=== PATIENT | female | born 1970 | race American Indian/Alaskan Native ===

== ENCOUNTER 2017-02-09 21:26 | Emergency (ER) | payer MEDICAID ==
--- NOTE | 2017-02-10 04:37 | Emergency Department Report ---
- General Chief complaint: Allergic Reaction Stated complaint: INSECT BITE Time Seen by Provider: 02/10/17 04:08 Source: patient Mode of arrival: Ambulatory Limitations: No Limitations - History of Present Illness Initial comments: This is a 46-year-old female well-nourished with nontoxic or ill in appearance that presents with redness and swelling to the left forearm. Patient stated she thinks she got bitten by a unknown insect she was taking the trash out. Patient denies any obvious signs of a laceration or abrasion to the site. Denies trauma to the area. Patient also stated has been itching until 2 Benadryl's that has subsided currently. Associated symptoms includes burning sensation to the area. Patient denies any chest pain, short of breath, numbness , tingling, abdominal pain, joint swelling, joint pain, pus, drainage, itching, nausea or vomiting. Patient denies any drug allergies. MD complaint: other (cellulitis) -: Gradual, days(s) (1) Location: LUE (anterior forearm) Severity: mild Severity scale (0 -10): 4 Quality: burning Consistency: constant Associated symptoms: denies other symptoms Treatments Prior to Arrival: none - Related Data Previous Rx's Medication Instructions Recorded Last Taken Type Cephalexin [Keflex] 500 mg PO BID #14 cap 02/10/17 Unknown Rx predniSONE [Deltasone] 20 mg PO BID #10 tab 02/10/17 Unknown Rx Allergies Allergy/AdvReac Type Severity Reaction Status Date / Time codeine Allergy Vomiting Verified 02/10/17 04:56 Abscess Boil HPI - HPI Chief Complaint: Allergic Reaction Stated Complaint: INSECT BITE Time Seen by Provider: 02/10/17 04:08 Home Medications: Previous Rx's Medication Instructions Recorded Last Taken Type Cephalexin [Keflex] 500 mg PO BID #14 cap 02/10/17 Unknown Rx predniSONE [Deltasone] 20 mg PO BID #10 tab 02/10/17 Unknown Rx Allergies/Adverse Reactions: Allergies Allergy/AdvReac Type Severity Reaction Status Date / Time codeine Allergy Vomiting Verified 02/10/17 04:56 ED Review of Systems ROS: Stated complaint: INSECT BITE Other details as noted in HPI Constitutional: denies: chills, fever Eyes: denies: eye pain, eye discharge, vision change ENT: denies: ear pain, throat pain Respiratory: denies: cough, shortness of breath, wheezing Cardiovascular: denies: chest pain, palpitations Endocrine: no symptoms reported Gastrointestinal: denies: abdominal pain, nausea, diarrhea Genitourinary: denies: urgency, dysuria, discharge Musculoskeletal: denies: back pain, joint swelling, arthralgia Skin: denies: rash, lesions Neurological: denies: headache, weakness, paresthesias Psychiatric: denies: anxiety, depression Hematological/Lymphatic: denies: easy bleeding, easy bruising ED Past Medical Hx - Past Medical History Previous Medical History?: Yes Hx Hypertension: Yes Hx Diabetes: Yes - Surgical History Past Surgical History?: Yes Additional Surgical History: wisdom teeth removal - Social History Smoking Status: Never Smoker - Medications Home Medications: Home Medications Medication Instructions Recorded Confirmed Last Taken Type Cephalexin [Keflex] 500 mg PO BID #14 cap 02/10/17 Unknown Rx predniSONE [Deltasone] 20 mg PO BID #10 tab 02/10/17 Unknown Rx ED Physical Exam - General Limitations: No Limitations General appearance: alert, in no apparent distress - Head Head exam: Present: atraumatic, normocephalic - Eye Eye exam: Present: normal appearance, PERRL, EOMI. Absent: scleral icterus, conjunctival injection, nystagmus, periorbital swelling, periorbital tenderness Pupils: Present: normal accommodation - ENT ENT exam: Present: normal exam, normal orophraynx, mucous membranes moist, TM's normal bilaterally, normal external ear exam - Neck Neck exam: Present: normal inspection, full ROM. Absent: tenderness, meningismus, lymphadenopathy, thyromegaly - Respiratory Respiratory exam: Present: normal lung sounds bilaterally. Absent: respiratory distress, wheezes, rales, rhonchi, stridor, chest wall tenderness, accessory muscle use, decreased breath sounds, prolonged expiratory - Cardiovascular Cardiovascular Exam: Present: regular rate, normal rhythm. Absent: systolic murmur, diastolic murmur, rubs, gallop - GI/Abdominal GI/Abdominal exam: Present: soft, normal bowel sounds. Absent: distended, tenderness, guarding, rebound, rigid, organomegaly - Extremities Exam Extremities exam: Present: normal inspection, full ROM, normal capillary refill. Absent: tenderness, pedal edema, joint swelling, calf tenderness - Expanded Upper Extremity Exam Left General: Present: normal inspection Shoulder Exam: Present: normal inspection, full ROM. Absent: tenderness, swelling, abrasion, laceration, ecchymosis Upper Arm exam: Present: normal inspection, full ROM. Absent: tenderness, swelling, abrasion, laceration, ecchymosis Elbow exam: Present: normal inspection, full ROM. Absent: tenderness, swelling , abrasion, laceration, ecchymosis, deformity Forearm Wrist exam: Present: normal inspection, full ROM, tenderness, swelling, erythema. Absent: abrasion, laceration, ecchymosis, deformity, crepidus, dislocation, tenderness over anatomical snuff box, pain with axial thumb loading , other (pus, drainage) Hand Wrist exam: Present: normal inspection, full ROM. Absent: tenderness, swelling, abrasion, laceration, ecchymosis, deformity, crepidus, dislocation, erythema, amputation, nail avulsion, subungual hematoma Neuro motor exam: Present: wrist extension intact, thumb adduction intact, fingers 2-5 abduction intact Neurosensory exam: Present: 2-point discrimination, radial nerve intact, ulnar nerve intact, median nerve intact Vascular: Present: vascular compromise, normal capillary refill - Back Exam Back exam: Present: normal inspection, full ROM. Absent: tenderness, CVA tenderness (R), CVA tenderness (L), muscle spasm, paraspinal tenderness, vertebral tenderness, rash noted - Neurological Exam Neurological exam: Present: alert, oriented X3, CN II-XII intact, normal gait - Psychiatric Psychiatric exam: Present: normal affect, normal mood - Skin Skin exam: Present: warm, dry, intact, normal color. Absent: rash - Other Other exam information: 4 cm erythema with tenderness and swelling to the anterior forearm. No pus, no drainage. ED Course Vital Signs 02/09/17 02/10/17 02/10/17 22:27 04:44 04:53 Temperature 97.6 F Pulse Rate 97 H 80 78 Respiratory 20 16 Rate Blood Pressure 106/60 Blood Pressure 108/84 [Right] O2 Sat by Pulse 98 100 Oximetry ED Medical Decision Making - Medical Decision Making ED course: This is a 46-year-old female that presents with cellulitis to the anterior forearm. 1- after my physical exam, patient received Keflex and prednisone at the time of discharge. 2- I used a permanent marker to outline the cellulitis and instructed the patient to observe if redness starts the past that lined up or bends emergency room. 3- patient was instructed to finish full course of antibiotics and prednisone as prescribed. 4- at time time of discharge, the patient does not seem toxic or ill in appearance. No acute signs of distress noted. Patient agrees to discharge treatment plan of care. No further questions noted by the patient. 5- patient was also instructed to follow-up with her primary care doctor in 3-5 days or if symptoms worsen such as redness passing the outline marker, pus, drainage, fever, chills, numbness or tingling, headache, stiff neck, abdominal pain report back to emergency room as was possible. Critical care attestation.: If time is entered above; I have spent that time in minutes in the direct care of this critically ill patient, excluding procedure time. ED Disposition Clinical Impression: Cellulitis Qualifiers: Site of cellulitis: extremity Site of cellulitis of extremity: upper extremity Laterality: left Qualified Code(s): L03.114 - Cellulitis of left upper limb Disposition: DISCHARGED TO HOME OR SELFCARE Is pt being admited?: No Does the pt Need Aspirin: No Condition: Stable Instructions: Cellulitis (ED) Additional Instructions: Follow-up with your primary care doctor in 3-5 days or if symptoms worsen such as redness passing the outline marker, pus, drainage, fever, chills, numbness or tingling, headache, stiff neck, abdominal pain report back to emergency room as was possible. Take full course of antibiotics and prednisone as prescribed. Prescriptions: Cephalexin [Keflex] 500 mg PO BID #14 cap predniSONE [Deltasone] 20 mg PO BID #10 tab Referrals: GURDEEP VALLECILLO MD [Primary Care Provider] - 3-5 Days [facility] [Outside] - 3-5 Days [facility] [Outside] - 3-5 Days NORMA PERKINS MD [Staff Physician] - 3-5 Days Forms: Work/School Release Form(ED)
[2017-02-10 04:54] VITALS: BP 108/84
== END 2017-02-10 05:40 | disposition home or self-care (01) ==
LOC: ED 21:26
DX: L03.114 Cellulitis of left upper limb (principal); I10 Essential (primary) hypertension; E11.9 Type 2 diabetes mellitus without complications
CPT/HCPCS: 99282

== ENCOUNTER 2019-04-26 10:55 | Emergency (ER) | payer MEDICAID ==
--- NOTE | 2019-04-26 11:47 | Event Note ---
ED Screening Note Date of service: 04/26/19 Time: 11:43 ED Screening Note: This is a 48 y.o. F. that presents to the ER with BLE edema this morning. Newly diagnosed with ESRD stage 3. PMH DM2, HTN, gout, and anxiety This initial assessment/diagnostic orders/clinical plan/treatment(s) is/are subject to change based on patients health status, clinical progression and re- assessment by fellow clinical providers in the ED. Further treatment and workup at subsequent clinical providers discretion. Patient/guardian urged not to elope from the ED as their condition may be serious if not clinically assessed and managed. Initial orders include: Labs, EKG, and CXR
[2019-04-26 12:25] LABS: Hematocrit 36.8 % (30.3-42.9); Mean Corpuscular HGB Conc 33 % (30-34); Mean Corpuscular Volume 80 fl (79-97); Red Blood Count 4.58 M/mm3 (3.65-5.03)
[2019-04-26 12:44] LABS: Red Cell Distribution Width 22.7 % (13.2-15.2)
[2019-04-26 12:45] LABS: Platelet Count 99 K/mm3 (140-440)
--- NOTE | 2019-04-26 13:15 | XRay Report ---
CHEST 2 VIEWS INDICATION / CLINICAL INFORMATION: Edema. COMPARISON: None available. FINDINGS: SUPPORT DEVICES: None. HEART / MEDIASTINUM: The heart size and pulmonary vasculature are normal. LUNGS / PLEURA: No significant pulmonary or pleural abnormality. No pneumothorax. ADDITIONAL FINDINGS: No significant additional findings. IMPRESSION: No acute findings. Signer Name: Liam Marie MD Signed: 04/26/2019 1:11 PM Workstation Name: [id number]
[2019-04-26 13:22] LABS: Albumin 2.8 g/dL (3.9-5)
[2019-04-26 14:22] LABS: Basophils % (Manual) 0 % (0.0-1.8); Total Cells Counted 100
[2019-04-26 14:23] LABS: Anisocytosis Few; Platelet Estimate Consistent w Auto; Poikilocytosis Few; Target Cells Few
--- NOTE | 2019-04-26 15:53 | Emergency Department Report ---
<NORMA ESPINOZA - Last Filed: 04/26/19 19:45> ED General Adult HPI - General Chief complaint: Extremity Problem,Nontraumatic Stated complaint: BI LEG SWELLING Time Seen by Provider: 04/26/19 11:43 Source: patient Mode of arrival: Ambulatory Limitations: No Limitations - History of Present Illness Initial comments: 48-year-old female arrives with a family member. She is somewhat poor historian. Initially she stated that both her legs were swollen and that she had a kidney age or creatinine of 3. She sees Dr. Ku. She had some mild renal failure with creatinines of 1.4 or so in early March. When I spoke with her monitor car operator at the custodial is seems they were actually concerned about right leg swelling. When I went back to discuss that with the patient, she could then remember that she did have some right leg discomfort and swelling. Anyway, the patient has had intermittent leg swelling and is treated with diure tics. -: Gradual, days(s) Associated Symptoms: denies other symptoms - Related Data Home Medications Medication Instructions Recorded Confirmed Last Taken Allopurinol [Zyloprim] 100 mg PO QDAY 04/26/19 04/26/19 04/26/19 Folic Acid 0.8 mg PO QDAY 04/26/19 04/26/19 04/26/19 Furosemide [Lasix TAB] 40 mg PO QDAY 04/26/19 04/26/19 04/26/19 Lisinopril/Hydrochlorothiazide 1 each PO QDAY 04/26/19 04/26/19 04/26/19 [Zestoretic 10-12.5 mg Tablet] Pyridoxine HCl [Vitamin B-6 100MG 100 mg PO DAILY 04/26/19 04/26/19 04/26/19 TAB] Thiamine [Vitamin B-1] 100 mg PO QDAY 04/26/19 04/26/19 04/26/19 diphenhydrAMINE [Benadryl CAP] 25 mg PO QHS PRN 04/26/19 04/26/19 Unknown metFORMIN [Glucophage] 500 mg PO QDAY 04/26/19 04/26/19 04/26/19 risperiDONE [RisperiDONE] 1 mg PO QDAY 04/26/19 04/26/19 04/26/19 Allergies Allergy/AdvReac Type Severity Reaction Status Date / Time codeine Allergy Vomiting Verified 02/10/17 04:56 ED Review of Systems Constitutional: denies: chills, fever Eyes: denies: eye pain, eye discharge, vision change ENT: denies: ear pain, throat pain Respiratory: denies: cough, shortness of breath, wheezing Cardiovascular: denies: chest pain, palpitations Endocrine: no symptoms reported Gastrointestinal: denies: abdominal pain, nausea, diarrhea Genitourinary: denies: urgency, dysuria, discharge Musculoskeletal: as per HPI (right leg swelling and pain), arthralgia (patient states that her right knee hurts). denies: back pain, joint swelling Skin: denies: rash, lesions Neurological: denies: headache, weakness, paresthesias Psychiatric: denies: anxiety, depression Hematological/Lymphatic: denies: easy bleeding, easy bruising ED Past Medical Hx - Past Medical History Previous Medical History?: Yes Hx Hypertension: Yes Hx Diabetes: Yes Hx Renal Disease: Yes (stage 3) - Surgical History Past Surgical History?: Yes Additional Surgical History: wisdom teeth removal - Social History Smoking Status: Never Smoker Substance Use Type: None - Medications Home Medications: Home Medications Medication Instructions Recorded Confirmed Last Taken Type Allopurinol [Zyloprim] 100 mg PO QDAY 04/26/19 04/26/19 04/26/19 History Folic Acid 0.8 mg PO QDAY 04/26/19 04/26/19 04/26/19 History Furosemide [Lasix TAB] 40 mg PO QDAY 04/26/19 04/26/19 04/26/19 History Lisinopril/Hydrochlorothiazide 1 each PO QDAY 04/26/19 04/26/19 04/26/19 History [Zestoretic 10-12.5 mg Tablet] Pyridoxine HCl [Vitamin B-6 100MG 100 mg PO DAILY 04/26/19 04/26/19 04/26/19 History TAB] Thiamine [Vitamin B-1] 100 mg PO QDAY 04/26/19 04/26/19 04/26/19 History diphenhydrAMINE [Benadryl CAP] 25 mg PO QHS PRN 04/26/19 04/26/19 Unknown History metFORMIN [Glucophage] 500 mg PO QDAY 08/14/19 08/14/19 08/14/19 History risperiDONE [RisperiDONE] 1 mg PO QDAY 04/26/19 04/26/19 04/26/19 History ED Physical Exam - General Limitations: No Limitations General appearance: alert, in no apparent distress - Head Head exam: Present: atraumatic, normocephalic - Eye Eye exam: Present: normal appearance. Absent: scleral icterus - ENT ENT exam: Present: mucous membranes moist - Neck Neck exam: Present: normal inspection - Respiratory Respiratory exam: Present: normal lung sounds bilaterally. Absent: respiratory distress - Cardiovascular Cardiovascular Exam: Present: regular rate, normal rhythm. Absent: systolic murmur, diastolic murmur, rubs, gallop - GI/Abdominal GI/Abdominal exam: Present: soft, normal bowel sounds. Absent: distended, tenderness, guarding, rebound, rigid - Extremities Exam Extremities exam: Present: other (patient's leg girth on the right appears to be a little bit increased compared to the left. She does appear to have some chronic right knee deformity. There is no effusion. There is no pain on range of motion or any Tenderness noted. There is some post inflammatory hypopigmentation of the dorsum of both feet. Neurovascular exam is intact.) - Back Exam Back exam: Present: normal inspection - Neurological Exam Neurological exam: Present: alert, oriented X3, CN II-XII intact. Absent: motor sensory deficit - Psychiatric Psychiatric exam: Present: normal affect, normal mood - Skin Skin exam: Present: warm, dry, intact, normal color. Absent: rash ED Course - Reevaluation(s) Reevaluation #1: On re-exam the patient has no complaints. Doppler exam is yet pending. 04/26/19 19:45 ED Medical Decision Making - Lab Data Result diagrams: 04/26/19 12:09 04/26/19 12:09 Laboratory Results - last 24 hr 04/26/19 04/26/19 04/26/19 12:09 12:09 12:09 WBC 8.9 RBC 4.58 Hgb 12.0 Hct 36.8 MCV 80 MCH 26 L MCHC 33 RDW 22.7 H Plt Count 99 L Hubbard % (Auto) Him Coder Add Manual Diff Complete Total Counted 100 Seg Neuts % (Manual) 54.0 Band Neutrophils % 0 Lymphocytes % (Manual) 36.0 H Reactive Lymphs % (Man) 0 Monocytes % (Manual) 9.0 H Eosinophils % (Manual) 1.0 Basophils % (Manual) 0 Metamyelocytes % 0 Myelocytes % 0 Promyelocytes % 0 Blast Cells % 0 Nucleated RBC % Not Reportable Seg Neutrophils # Man 4.8 Band Neutrophils # 0.0 Lymphocytes # (Manual) 3.2 Abs React Lymphs (Man) 0.0 Monocytes # (Manual) 0.8 Eosinophils # (Manual) 0.1 Basophils # (Manual) 0.0 Metamyelocytes # 0.0 Myelocytes # 0.0 Promyelocytes # 0.0 Blast Cells # 0.0 WBC Morphology Not Reportable Hypersegmented Neuts Not Reportable Hyposegmented Neuts Not Reportable Hypogranular Neuts Not Reportable Smudge Cells Not Reportable Toxic Granulation Not Reportable Toxic Vacuolation Not Reportable Dohle Bodies Not Reportable Pelger-Huet Anomaly Not Reportable Bernardino Rods Not Reportable Platelet Estimate Consistent w auto Clumped Platelets Not Reportable Plt Clumps, EDTA Not Reportable Large Platelets Not Reportable Giant Platelets Not Reportable Platelet Satelliting Not Reportable Plt Morphology Comment Not Reportable RBC Morphology Not Reportable Dimorphic RBCs Not Reportable Polychromasia Not Reportable Hypochromasia Not Reportable Poikilocytosis Few Anisocytosis Few Microcytosis Not Reportable Macrocytosis Not Reportable Spherocytes Not Reportable Pappenheimer Bodies Not Reportable Sickle Cells Not Reportable Target Cells Few Tear Drop Cells Not Reportable Ovalocytes Not Reportable Helmet Cells Not Reportable [place] Bodies Not Reportable [place] Rings Not Reportable Odin Cells Not Reportable Bite Cells Not Reportable Crenated Cell Not Reportable Elliptocytes Not Reportable Acanthocytes (Spur) Few Rouleaux Not Reportable Hemoglobin C Crystals Not Reportable Schistocytes Not Reportable Malaria parasites Not Reportable Brian Bodies Not Reportable Hem Pathologist Commnt No Sodium 133 L Potassium 4.4 Chloride 100.0 Carbon Dioxide 21 L Anion Gap 16 BUN 20 H Creatinine 1.2 Estimated GFR 59 BUN/Creatinine Ratio 17 Glucose 103 H Calcium 11.0 H Total Bilirubin 0.70 AST 60 H ALT 45 Alkaline Phosphatase 114 Troponin T < 0.010 NT-Pro-B Natriuret Pep 301.0 Total Protein 6.6 Albumin 2.8 L Albumin/Globulin Ratio 0.7 ED Disposition Clinical Impression: Leg edema, right Disposition: DC-01 TO HOME OR SELFCARE Condition: Stable Instructions: Leg Edema (ED) Additional Instructions: Follow-up with your doctor or the doctor/clinic provided. Return if symptoms worsen as indicated by your discharge instructions. Referrals: DOUG JACOBSON MD [Primary Care Provider] - 3-5 Days SANCHEZ JOSUE MD [Staff Physician] - 3-5 Days <MORRIS BOWDEN - Last Filed: 04/26/19 23:25> ED Review of Systems ROS: Stated complaint: BI LEG SWELLING Other details as noted in HPI ED Course Vital Signs 04/26/19 04/26/19 04/26/19 11:43 13:51 14:03 Temperature 97.5 F L Pulse Rate 100 H 85 78 Respiratory 20 16 16 Rate Blood Pressure 86/46 Blood Pressure 89/52 94/57 [Left] O2 Sat by Pulse 100 99 Oximetry 04/26/19 04/26/19 04/26/19 14:22 14:53 15:05 Temperature Pulse Rate 75 Respiratory 16 25 H Rate Blood Pressure 101/60 110/55 Blood Pressure [Left] O2 Sat by Pulse 100 Oximetry 04/26/19 04/26/19 04/26/19 15:30 16:00 16:30 Temperature Pulse Rate 75 74 Respiratory 12 19 Rate Blood Pressure 117/76 106/69 111/63 Blood Pressure [Left] O2 Sat by Pulse Oximetry 04/26/19 17:41 Temperature Pulse Rate Respiratory Rate Blood Pressure 115/58 Blood Pressure [Left] O2 Sat by Pulse 99 Oximetry ED Medical Decision Making - Lab Data Result diagrams: 04/26/19 12:09 04/26/19 12:09 - Radiology Data Radiology results: report reviewed DUPLEX DOPPLER LOWER EXTREMITY VEINS, RIGHT INDICATION: r leg swelling. Generalized right leg swelling since this morning TECHNIQUE: Duplex doppler imaging was performed through the veins of the right lower extremity using venous compression and other maneuvers. COMPARISON: No relevant prior imaging study available. FINDINGS: Right Common femoral vein: Negative. Right Superficial femoral vein: Negative. Right Popliteal vein: Negative. Right Calf veins: Negative. Additional findings: None.. IMPRESSION: 1. No sonographic evidence for DVT in the right lower extremity. Critical care attestation.: If time is entered above; I have spent that time in minutes in the direct care of this critically ill patient, excluding procedure time. ED Disposition Is pt being admited?: No Does the pt Need Aspirin: No Time of Disposition: 23:25
[2019-04-26 16:11] LABS: Bacteria,Urine 1+ /HPF (Negative); Bilirubin,Urine NEG (Negative); Blood,Urine NEG (Negative); Color,Urine Yellow (Yellow); Protein,Urine <15 mg/dL mg/dL (Negative); Urobilinogen,Urine < 2.0 mg/dL (<2.0); WBC,Urine < 1.0 /HPF (0.0-6.0)
--- NOTE | 2019-04-26 22:39 | Vascular Lab Report ---
DUPLEX DOPPLER LOWER EXTREMITY VEINS, RIGHT INDICATION: r leg swelling. Generalized right leg swelling since this morning TECHNIQUE: Duplex doppler imaging was performed through the veins of the right lower extremity using venous comp ression and other maneuvers. COMPARISON: No relevant prior imaging study available. FINDINGS: Right Common femoral vein: Negative. Right Superficial femoral vein: Negative. Right Popliteal vein: Negative. Right Calf veins: Negative. Additional findings: None.. IMPRESSION: 1. No sonographic evidence for DVT in the right lower extremity. Signer Name: Evgeny Borjas MD Signed: 04/26/2019 10:34 PM Workstation Name: [id number]
[2019-04-27 01:37] VITALS: BP 102/58
== END 2019-04-26 23:30 | disposition home or self-care (01) ==
LOC: ED 10:55
DX: R60.0 Localized edema (principal); I12.9 Hypertensive chronic kidney disease with stage 1 through stage 4 chronic kidney disease, or unspecified chronic kidney disease; N18.3 Chronic kidney disease, stage 3 (moderate); E11.22 Type 2 diabetes mellitus with diabetic chronic kidney disease
CPT/HCPCS: 36415; 71046; 80053; 81001; 83880; 84484; 85007; 85025; 93005; 93010